=== PATIENT | female | born 1965 | race Caucasian/White ===

== ENCOUNTER 2020-04-14 22:55 | Emergency (ER) | payer OTHER ==
[~2020-04-14] VITALS: Ht 162.6 cm; Wt 59.0 kg
[~2020-04-14 22:55] MED LIST: AVAPRO75 MG; BYSTOLIC2.5 MG
[2020-04-14] MEDS ORDERED: NASAL MIST126 ML (23:12)
[2020-04-14] MEDS ORDERED: LIPITOR40 MG (23:12)
[2020-04-14] MEDS ORDERED: SYNTHROID150 MCG (23:12)
[2020-04-15] MEDS ORDERED: CEFADROXIL500 MG/5 M PO (01:51)
== END 2020-04-15 02:06 ==
LOC: ER 22:55
DX: S01.02XA Laceration with foreign body of scalp, initial encounter (principal); W01.118A Fall on same level from slipping, tripping and stumbling with subsequent striking against other sharp object, initial encounter; Y93.89 Activity, other specified; Y92.89 Other specified places as the place of occurrence of the external cause; Y99.8 Other external cause status

== ENCOUNTER 2020-04-24 21:56 | Emergency (ER) | payer OTHER ==
[~2020-04-24] VITALS: Ht 165.1 cm; Wt 59.0 kg
[~2020-04-24 21:56] MED LIST changes: +CEFADROXIL500 MG/5 M PO; +LIPITOR40 MG; +NASAL MIST126 ML; +SYNTHROID150 MCG
== END 2020-04-24 23:28 | disposition home or self-care (01) ==
LOC: ER 21:56
DX: Z48.02 Encounter for removal of sutures (principal)

== ENCOUNTER 2021-10-11 09:42 | Outpatient (CLI) | payer OTHER | END 2021-10-11 10:05 | disposition home or self-care (01) | LOC: TOM 09:42 | PROVIDERS: ATTEND General Practice | DX: G93.89 Other specified disorders of brain (principal); S09.90XA Unspecified injury of head, initial encounter ==

== ENCOUNTER 2022-07-11 13:13 | Outpatient (CLI) | payer OTHER | END 2022-07-11 13:39 | disposition home or self-care (01) | LOC: MAMO-SONO 13:13 | PROVIDERS: ATTEND Obstetrics & Gynecology | DX: Z12.31 Encounter for screening mammogram for malignant neoplasm of breast (principal); N60.11 Diffuse cystic mastopathy of right breast; N60.12 Diffuse cystic mastopathy of left breast ==

== ENCOUNTER 2023-02-19 10:55 | Outpatient (CLI) | payer OTHER | END 2023-02-19 11:22 | disposition home or self-care (01) | LOC: MAMO-SONO 10:55 | DX: N60.12 Diffuse cystic mastopathy of left breast (principal); E04.2 Nontoxic multinodular goiter ==

== ENCOUNTER 2023-11-14 13:29 | Emergency (ER) | payer OTHER ==
[~2023-11-14] VITALS: Ht 165.1 cm; Wt 49.0 kg
== END 2023-11-14 19:11 | disposition home or self-care (01) ==
LOC: ER 13:31
DX: S09.8XXA Other specified injuries of head, initial encounter (principal); W19.XXXA Unspecified fall, initial encounter; Y93.89 Activity, other specified; Y92.89 Other specified places as the place of occurrence of the external cause; Y99.8 Other external cause status; E03.8 Other specified hypothyroidism; I10 Essential (primary) hypertension

== ENCOUNTER 2023-12-05 09:18 | Outpatient (CLI) | payer OTHER | END 2023-12-05 09:21 | disposition home or self-care (01) | LOC: NUCLEAR 09:18 | PROVIDERS: ATTEND Internal Medicine Cardiovascular Disease | DX: I10 Essential (primary) hypertension (principal); E78.2 Mixed hyperlipidemia; E03.9 Hypothyroidism, unspecified; K21.00 Gastro-esophageal reflux disease with esophagitis, without bleeding; Z13.6 Encounter for screening for cardiovascular disorders ==